=== PATIENT | female | born 2000 | race Caucasian/White ===

== ENCOUNTER 2018-07-10 14:56 | Emergency (ER) | payer OTHER ==
[2018-07-10 15:46] VITALS: BP 121/74
--- NOTE | 2018-07-10 16:04 | ED ---
Upper Extremity Pain - HPI Summary HPI Summary: 18 yr old female with the complaint of right wrist and hand pain. Onset of symptoms was 6 days ago. The patient complains of pain to the right distal radius and the right 5th metacarpal area after closing her wrist in a car door. The pain is still present, 08/20, no swelling or bruising. No other complaints. - History of Current Complaint Chief Complaint: UCUpperExtremity Stated Complaint: RIGHT WRIST INJURY Time Seen by Provider: 07/10/18 15:48 Hx Last Menstrual Period: 06/14/18 - Allergies/Home Medications Allergies/Adverse Reactions: Allergies Allergy/AdvReac Type Severity Reaction Status Date / Time amoxicillin Allergy Unknown Hives Verified 07/10/18 15:34 Penicillins Allergy Unknown Hives Verified 07/10/18 15:34 Home Medications: Home Medications ? Name Antibiotic 1 BID 07/10/18 [History] Albuterol inh POWDER (NF) [Proair Respiclick] 2 puff INH Q4H PRN 07/10/18 [ History Confirmed 07/10/18] Ibuprofen TAB* [Advil TAB*] 400 mg PO Q6H PRN 07/10/18 [History Confirmed ] Sertraline* [Zoloft*] 100 mg PO BEDTIME 07/10/18 [History Confirmed 07/10/18] PMH/Surg Hx/FS Hx/Imm Hx Respiratory History: Reports: Hx Asthma Infectious Disease History: No Infectious Disease History: Reports: Traveled Outside the [place] in Last 30 Days - NO TRAVEL ADVISORIES FOR IVORY - Family History Known Family History: Positive: None - Social History Alcohol Use: Weekly Substance Use Type: Reports: None Smoking Status (MU): Never Smoked Tobacco Review of Systems Constitutional: Negative Positive: Other - pain distal radius, and 5th metacarpal right hand. No STS no bruises. All Other Systems Reviewed And Are Negative: Yes Physical Exam Triage Information Reviewed: Yes Vital Signs On Initial Exam: Initial Vitals Temp Pulse Resp BP Pulse Ox 98.6 F 61 16 121/74 100 07/10/18 15:37 07/10/18 15:37 07/10/18 15:37 07/10/18 15:37 07/10/18 15:37 Vital Signs Reviewed: Yes Appearance: Positive: Well-Appearing, No Pain Distress Skin: Positive: Warm, Skin Color Reflects Adequate Perfusion Head/Face: Positive: Normal Head/Face Inspection Eyes: Positive: EOMI, ANKITA ENT: Positive: Normal ENT inspection Neck: Positive: Nontender Respiratory/Lung Sounds: Positive: Clear to Auscultation Cardiovascular: Positive: Pulses are Symmetrical in both Upper and Lower Extremities Abdomen Description: Negative: Distended Musculoskeletal: Positive: Other - right hand tender over the 5th metacarpal, and also over the right distal radius. No STS, no bruising. Neurological: Positive: Sensory/Motor Intact, Alert, Oriented to Person Place, Time, CN Intact II-III, Normal Gait, Speech Normal Psychiatric: Positive: Normal Diagnostics - Vital Signs Vital Signs Temp Pulse Resp BP Pulse Ox 07/10/18 15:37 98.6 F 61 16 121/74 100 - Laboratory Lab Statement: Any lab studies that have been ordered have been reviewed, and results considered in the medical decision making process. - Radiology wrist and hand Radiology Interpretation Completed By: Radiologist - NAD Course/Dx - Course Course Of Treatment: 18 yr old with contusion. Neg Xray. - Diagnoses Provider Diagnoses: Contusion of right wrist Discharge - Sign-Out/Discharge Documenting (check all that apply): Patient Departure All imaging exams completed and their final reports reviewed: Yes - Discharge Plan Condition: Good Disposition: HOME Patient Education Materials: Contusion in Adults (ED) Referrals: No Primary Care Phys,NOPCP [Primary Care Provider] - - Billing Disposition and Condition Condition: GOOD Disposition: Home
== END 2018-07-10 17:19 | disposition home or self-care (01) ==
LOC: UCCORT 14:56
DX: S60.211A Contusion of right wrist, initial encounter (principal); W23.0XXA Caught, crushed, jammed, or pinched between moving objects, initial encounter; Y92.810 Car as the place of occurrence of the external cause; J45.909 Unspecified asthma, uncomplicated; Z88.0 Allergy status to penicillin
CPT/HCPCS: 99202; G0463